=== PATIENT | male | born 1980 | race Caucasian/White ===

== ENCOUNTER 2019-12-29 05:33 | Emergency (ER) | payer OTHER, SELFPAY ==
[2019-12-29 05:45] VITALS: BP 142/91; PULSE 87; RESP 16; TEMP 36.6; O2SAT 97; BMI 24.0
--- NOTE | 2019-12-29 05:51 | ED_ITS ---
HPI - Abdominal Pain <Leigh Ann Rendon MD - Last Filed: 12/30/19 03:38> General Chief Complaint: Abdominal Pain Stated Complaint: stomach pain x 5 days, vomiting Time Seen by Provider: 12/29/19 05:51 History of Present Illness HPI narrative: 39-year-old gentleman with no specific past medical history presents with 5 days of increasing abdominal pain. Was initially seen on December 27 at [facility] diagnosed with diverticulitis and started on Augmentin. Increasing pain and was seen the following day metronidazole and tramadol was added. Pain has continued he is now vomiting he has not had a bowel movement in 2 days is no longer passing flatus and pain is getting significantly worse. Does not describe significant fevers. Related Data Previous Rx's Medication Instructions Recorded ondansetron 4 mg PO Q4H PRN #14 tab 12/29/19 Allergies Allergy/AdvReac Type Severity Reaction Status Date / Time No Known Drug Allergies Allergy Verified 12/29/19 06:28 Review of Systems <Leigh Ann Rendon MD - Last Filed: 12/30/19 03:38> Review of Systems Narrative: Pertinent positive and negative findings as per HPI Remainder of review of systems is otherwise unremarkable for ENT: No sore throat, neck pain, ear pain CV: Chest pain, palpitations, dyspnea on exertion Respiratory: Cough, wheeze, dyspnea : Dysuria, hematuria, flank pain MS: Muscle weakness, numbness, joint swelling or warmth Skin: Rashes, nonhealing lesions Neuro: Syncope, dizziness, tingling Exam <Leigh Ann Rendon MD - Last Filed: 12/30/19 03:38> Narrative Exam Narrative: General: Healthy appearing, significant distress due to abdomin al pain Able to give a complete and coherent history. HEENT: Moist mucous membranes, normal sclera with reactive pupils, diaphoretic secondary to pain Neck: supple Respiratory: Lungs are clear to auscultation, no wheezing no rales no rhonchi. Full and symmetrical air movement Cardiac: Mild tachycardia but regular rate and rhythm no murmurs no bruits Abdomen: Firm, significantly tender worse in the left quadrants with guarding and significantly hypoactive bowel tones, no flank pain Skin: Warm and dry, no rashes Neurologic: Grossly neurologically intact with no obvious asymmetries or abnormalities Extremities: No trauma, well perfused Psych: Cooperative, appropriate insight and affect Initial Vital Signs Initial Vital Signs: Vital Signs Temperature 97.8 F 12/29/19 05:45 Pulse Rate 87 12/29/19 05:45 Respiratory Rate 16 12/29/19 05:45 Blood Pressure 142/91 H 12/29/19 05:45 Pulse Oximetry 97 12/29/19 05:45 <Antelmo Marrufo MD - Last Filed: 12/29/19 09:48> Initial Vital Signs Initial Vital Signs: Vital Signs Temperature 97.8 F 12/29/19 05:45 Pulse Rate 87 12/29/19 05:45 Respiratory Rate 16 12/29/19 05:45 Blood Pressure 142/91 H 12/29/19 05:45 Pulse Oximetry 97 12/29/19 05:45 Course <Leigh Ann Rendon MD - Last Filed: 12/30/19 03:38> Orders Ordered: Discontinued Medications Hydromorphone HCl (Dilaudid) 0.5 mg IV Q15MIN PRN PRN Reason: Pain, Severe (7-10) Last Admin: 12/29/19 06:08 Dose: 0.5 mg Documented by: [facility] Sodium Chloride (Normal Saline 0.9%) 1,000 mls @ 1,000 mls/hr IV BOLUS ONE Stop: 12/29/19 06:57 Last Infusion: 12/29/19 07:07 Dose: 100 mls/hr Documented by: Infusion: 12/29/19 06:16 Dose: 0 mls/hr Documented by: Admin: 12/29/19 06:09 Dose: 1,000 mls/hr Documented by: [facility] Piperacillin/Tazobactam/Dextrose (Zosyn) 3.375 gm in 50 mls @ 100 mls/hr IV NOW ONE Stop: 12/29/19 06:28 Last Infusion: 12/29/19 07:07 Dose: 0 mls/hr Documented by: Infusion: 12/29/19 06:35 Dose: 100 mls/hr Documented by: Infusion: 12/29/19 06:17 Dose: 0 mls/hr Documented by: Admin: 12/29/19 06:10 Dose: 100 mls/hr Documented by: [facility] Ketorolac Tromethamine (Toradol) 30 mg IV NOW ONE Stop: 12/29/19 07:43 Last Admin: 12/29/19 08:04 Dose: 30 mg Documented by: [facility] Magnesium Hydroxide (Milk Of Magnesia) 30 ml PO NOW ONE Stop: 12/29/19 09:00 Last Admin: 12/29/19 09:22 Dose: 30 ml Documented by: [facility] Ondansetron HCl (Zofran) 4 mg IV NOW ONE Stop: 12/29/19 05:59 Last Admin: 12/29/19 06:09 Dose: 4 mg Documented by: [facility] Vital Signs Vital signs: Vital Signs - 8 hr 12/29/19 05:45 12/29/19 06:34 12/29/19 06:55 Temperature 97.8 F Pulse Rate 87 84 77 Respiratory Rate 16 Blood Pressure 142/91 H 137/78 Pulse Oximetry 97 100 98 12/29/19 07:00 12/29/19 07:30 12/29/19 09:27 Temperature Pulse Rate 76 79 91 H Respiratory Rate 16 Blood Pressure 127/81 131/77 121/69 Pulse Oximetry 97 95 95 <Antelmo Marrufo MD - Last Filed: 12/29/19 09:48> Course Course Narrative: I assumed care of this patient at change of shift from Dr. Marley. The patient presented with severe abdominal pain, with nausea vomiting. He has been constipated for 4 days. He was initially seen several days ago at [facility] for abdominal pain. He was seen at [facility] 3 days ago and discharged on Augmentin after CT suggested diverticulitis. Records were obtained, I read the radiology report. Although suggestive, the diagnosis of diverticulitis was questionable. He was treated with Augmentin. He return to the ER with complaints of wound pain. Flagyl was added to the treatment. He was given Tramadol for pain. He describes periods of time where he is feeling better, pain and nausea seems to exacerbate in the evening. Pain exacerbated again prior to arrival here. On initial assessment he was having severe pain with guarding. CT was repeated, diverticulosis is noted, there is no evidence of diverticulitis. There is no evidence of abscess formation or free air. He was given a dose of IV Zosyn after arrival here. On my repeat exam, he is alert oriented and in no apparent distress. He has left lower quadrant abdominal pain, no distension, and normal bowel sounds. There are no peritoneal signs. When genital exam he has no testicular tenderness, but mild mild left epididymal tenderness. Rectal exam reveals a normal prostate, normal size and nontender. I advised him to continue his current treatment for diverticulitis, Augmentin and Flagyl. I would advise him to address the nausea with Zofran, and take milk of magnesia for constipation. He is advised to maintain good hydration.Tracy Ornelas MD Orders Ordered: Discontinued Medications Hydromorphone HCl (Dilaudid) 0.5 mg IV Q15MIN PRN PRN Reason: Pain, Severe (7-10) Last Admin: 12/29/19 06:08 Dose: 0.5 mg Documented by: [facility] Sodium Chloride (Normal Saline 0.9%) 1,000 mls @ 1,000 mls/hr IV BOLUS ONE Stop: 12/29/19 06:57 Last Infusion: 12/29/19 07:07 Dose: 100 mls/hr Documented by: Infusion: 12/29/19 06:16 Dose: 0 mls/hr Documented by: Admin: 12/29/19 06:09 Dose: 1,000 mls/hr Documented by: [facility] Piperacillin/Tazobactam/Dextrose (Zosyn) 3.375 gm in 50 mls @ 100 mls/hr IV NOW ONE Stop: 12/29/19 06:28 Last Infusion: 12/29/19 07:07 Dose: 0 mls/hr Documented by: Infusion: 12/29/19 06:35 Dose: 100 mls/hr Documented by: Infusion: 12/29/19 06:17 Dose: 0 mls/hr Documented by: Admin: 12/29/19 06:10 Dose: 100 mls/hr Documented by: [facility] Ketorolac Tromethamine (Toradol) 30 mg IV NOW ONE Stop: 12/29/19 07:43 Last Admin: 12/29/19 08:04 Dose: 30 mg Documented by: [facility] Magnesium Hydroxide (Milk Of Magnesia) 30 ml PO NOW ONE Stop: 12/29/19 09:00 Last Admin: 12/29/19 09:22 Dose: 30 ml Documented by: [facility] Ondansetron HCl (Zofran) 4 mg IV NOW ONE Stop: 12/29/19 05:59 Last Admin: 12/29/19 06:09 Dose: 4 mg Documented by: [facility] Vital Signs Vital signs: Vital Signs - 8 hr 12/29/19 05:45 12/29/19 06:34 12/29/19 06:55 Temperature 97.8 F Pulse Rate 87 84 77 Respiratory Rate 16 Blood Pressure 142/91 H 137/78 Pulse Oximetry 97 100 98 12/29/19 07:00 12/29/19 07:30 12/29/19 09:27 Temperature Pulse Rate 76 79 91 H Respiratory Rate 16 Blood Pressure 127/81 131/77 121/69 Pulse Oximetry 97 95 95 MDM - Abdominal Pain <Leigh Ann Rendon MD - Last Filed: 12/30/19 03:38> Medical Records Attestation: I reviewed the patient's medical records. Lab Data Result diagrams: 12/29/19 05:48 12/29/19 05:48 Labs: Lab Results 12/29/19 12/29/19 12/29/19 Range/Units 05:48 05:48 05:48 WBC 8.8 (4.5-11.0) X10^3/uL RBC 5.59 (4.5-5.9) X10^6/uL Hgb 15.8 (13.5-17.5) g/dL Hct 44.7 (41-53) % MCV 80.0 (80-100) fL MCH 28.2 (26-34) PG MCHC 35.3 (30-36) % RDW 13.8 (11.6-14.8) % Plt Count 179 (150-400) X10^3/uL Neut % (Auto) 77.6 H (50-75) % Lymph % (Auto) 15.1 L (25-40) % [place] % (Auto) 5.9 (3-14) % Eos % (Auto) 1.1 L (2-4) % Baso % (Auto) 0.3 (0-2) % Neut # (Auto) 6900 (0647-4758) /uL Lymph # (Auto) 1300 (0761-8054) /uL [place] # (Auto) 500 (0-900) /uL Eos # (Auto) 100 (0-450) /uL Baso # (Auto) 0 (0-100) /uL Sodium 128 L (137-145) mmol/L Potassium 3.3 L (3.4-5.1) mmol/L Chloride 92 L (98-107) mmol/L Carbon Dioxide 21 L (22-32) mmol/L BUN 5 L (9-20) mg/dL Creatinine 0.80 (0.66-1.25) mg/dL Estimated GFR > 60.0 (>60) mL/min BUN/Creatinine Ratio 6.3 (6-22) Glucose 108 H (70-100) mg/dL Lactate 1.6 (0.7-2.1) mmol/L Calcium 9.5 (8.4-10.2) mg/dL Magnesium (1.6-2.3) mg/dL Total Bilirubin 1.2 (0.2-1.3) mg/dL AST 32 (17-59) IU/L ALT 24 (<50) IU/L Alkaline Phosphatase 108 (38-126) U/L Total Protein 7.9 (6.3-8.2) g/dL Albumin 5.0 (3.5-5.0) g/dL Globulin 2.9 (1.7-4.1) g/dL Albumin/Globulin Ratio 1.7 (1.0-2.8) Lipase 45 (23-300) U/L Urine Color Urine Appearance Urine pH (4.5-8.0) Ur Specific [place] (1.000-1.035) Urine Protein (Negative) Urine Glucose (UA) (Negative) g/dL Urine Ketones (NEGATIVE) Urine Occult Blood (Negative) Urine Nitrate (Negative) Urine Bilirubin (NEGATIVE) Urine Urobilinogen (0.2) E.U./dL Ur Leukocyte Esterase (NEGATIVE) Urine RBC (0-5/HPF) Urine WBC (0-5/HPF) Urine Bacteria (None) Ur Culture Indicated? Micro UA Comment 12/29/19 12/29/19 Range/Units 05:48 06:58 WBC (4.5-11.0) X10^3/uL RBC (4.5-5.9) X10^6/uL Hgb (13.5-17.5) g/dL Hct (41-53) % MCV (80-100) fL MCH (26-34) PG MCHC (30-36) % RDW (11.6-14.8) % Plt Count (150-400) X10^3/uL Neut % (Auto) (50-75) % Lymph % (Auto) (25-40) % [place] % (Auto) (3-14) % Eos % (Auto) (2-4) % Baso % (Auto) (0-2) % Neut # (Auto) (1061-4176) /uL Lymph # (Auto) (5423-3736) /uL [place] # (Auto) (0-900) /uL Eos # (Auto) (0-450) /uL Baso # (Auto) (0-100) /uL Sodium (137-145) mmol/L Potassium (3.4-5.1) mmol/L Chloride (98-107) mmol/L Carbon Dioxide (22-32) mmol/L BUN (9-20) mg/dL Creatinine (0.66-1.25) mg/dL Estimated GFR (>60) mL/min BUN/Creatinine Ratio (6-22) Glucose (70-100) mg/dL Lactate (0.7-2.1) mmol/L Calcium (8.4-10.2) mg/dL Magnesium 1.9 (1.6-2.3) mg/dL Total Bilirubin (0.2-1.3) mg/dL AST (17-59) IU/L ALT (<50) IU/L Alkaline Phosphatase (38-126) U/L Total Protein (6.3-8.2) g/dL Albumin (3.5-5.0) g/dL Globulin (1.7-4.1) g/dL Albumin/Globulin Ratio (1.0-2.8) Lipase (23-300) U/L Urine Color Yellow Urine Appearance Clear Urine pH 7.0 (4.5-8.0) Ur Specific [place] <=1.005 (1.000-1.035) Urine Protein Negative (Negative) Urine Glucose (UA) Negative (Negative) g/dL Urine Ketones 2+ H (NEGATIVE) Urine Occult Blood Negative (Negative) Urine Nitrate Negative (Negative) Urine Bilirubin Negative (NEGATIVE) Urine Urobilinogen 0.2 (0.2) E.U./dL Ur Leukocyte Esterase Negative (NEGATIVE) Urine RBC None seen (0-5/HPF) Urine WBC None seen (0-5/HPF) Urine Bacteria None seen (None) Ur Culture Indicated? Cult not indicated Micro UA Comment Microscopic normal <Antelmo Marrufo MD - Last Filed: 12/29/19 09:48> Lab Data Labs: Lab Results 12/29/19 12/29/19 12/29/19 Range/Units 05:48 05:48 05:48 WBC 8.8 (4.5-11.0) X10^3/uL RBC 5.59 (4.5-5.9) X10^6/uL Hgb 15.8 (13.5-17.5) g/dL Hct 44.7 (41-53) % MCV 80.0 (80-100) fL MCH 28.2 (26-34) PG MCHC 35.3 (30-36) % RDW 13.8 (11.6-14.8) % Plt Count 179 (150-400) X10^3/uL Neut % (Auto) 77.6 H (50-75) % Lymph % (Auto) 15.1 L (25-40) % [place] % (Auto) 5.9 (3-14) % Eos % (Auto) 1.1 L (2-4) % Baso % (Auto) 0.3 (0-2) % Neut # (Auto) 6900 (4378-7608) /uL Lymph # (Auto) 1300 (9850-4744) /uL [place] # (Auto) 500 (0-900) /uL Eos # (Auto) 100 (0-450) /uL Baso # (Auto) 0 (0-100) /uL Sodium 128 L (137-145) mmol/L Potassium 3.3 L (3.4-5.1) mmol/L Chloride 92 L (98-107) mmol/L Carbon Dioxide 21 L (22-32) mmol/L BUN 5 L (9-20) mg/dL Creatinine 0.80 (0.66-1.25) mg/dL Estimated GFR > 60.0 (>60) mL/min BUN/Creatinine Ratio 6.3 (6-22) Glucose 108 H (70-100) mg/dL Lactate 1.6 (0.7-2.1) mmol/L Calcium 9.5 (8.4-10.2) mg/dL Magnesium (1.6-2.3) mg/dL Total Bilirubin 1.2 (0.2-1.3) mg/dL AST 32 (17-59) IU/L ALT 24 (<50) IU/L Alkaline Phosphatase 108 (38-126) U/L Total Protein 7.9 (6.3-8.2) g/dL Albumin 5.0 (3.5-5.0) g/dL Globulin 2.9 (1.7-4.1) g/dL Albumin/Globulin Ratio 1.7 (1.0-2.8) Lipase 45 (23-300) U/L Urine Color Urine Appearance Urine pH (4.5-8.0) Ur Specific [place] (1.000-1.035) Urine Protein (Negative) Urine Glucose (UA) (Negative) g/dL Urine Ketones (NEGATIVE) Urine Occult Blood (Negative) Urine Nitrate (Negative) Urine Bilirubin (NEGATIVE) Urine Urobilinogen (0.2) E.U./dL Ur Leukocyte Esterase (NEGATIVE) Urine RBC (0-5/HPF) Urine WBC (0-5/HPF) Urine Bacteria (None) Ur Culture Indicated? Micro UA Comment 12/29/19 12/29/19 Range/Units 05:48 06:58 WBC (4.5-11.0) X10^3/uL RBC (4.5-5.9) X10^6/uL Hgb (13.5-17.5) g/dL Hct (41-53) % MCV (80-100) fL MCH (26-34) PG MCHC (30-36) % RDW (11.6-14.8) % Plt Count (150-400) X10^3/uL Neut % (Auto) (50-75) % Lymph % (Auto) (25-40) % [place] % (Auto) (3-14) % Eos % (Auto) (2-4) % Baso % (Auto) (0-2) % Neut # (Auto) (1730-6077) /uL Lymph # (Auto) (3689-3590) /uL [place] # (Auto) (0-900) /uL Eos # (Auto) (0-450) /uL Baso # (Auto) (0-100) /uL Sodium (137-145) mmol/L Potassium (3.4-5.1) mmol/L Chloride (98-107) mmol/L Carbon Dioxide (22-32) mmol/L BUN (9-20) mg/dL Creatinine (0.66-1.25) mg/dL Estimated GFR (>60) mL/min BUN/Creatinine Ratio (6-22) Glucose (70-100) mg/dL Lactate (0.7-2.1) mmol/L Calcium (8.4-10.2) mg/dL Magnesium 1.9 (1.6-2.3) mg/dL Total Bilirubin (0.2-1.3) mg/dL AST (17-59) IU/L ALT (<50) IU/L Alkaline Phosphatase (38-126) U/L Total Protein (6.3-8.2) g/dL Albumin (3.5-5.0) g/dL Globulin (1.7-4.1) g/dL Albumin/Globulin Ratio (1.0-2.8) Lipase (23-300) U/L Urine Color Yellow Urine Appearance Clear Urine pH 7.0 (4.5-8.0) Ur Specific [place] <=1.005 (1.000-1.035) Urine Protein Negative (Negative) Urine Glucose (UA) Negative (Negative) g/dL Urine Ketones 2+ H (NEGATIVE) Urine Occult Blood Negative (Negative) Urine Nitrate Negative (Negative) Urine Bilirubin Negative (NEGATIVE) Urine Urobilinogen 0.2 (0.2) E.U./dL Ur Leukocyte Esterase Negative (NEGATIVE) Urine RBC None seen (0-5/HPF) Urine WBC None seen (0-5/HPF) Urine Bacteria None seen (None) Ur Culture Indicated? Cult not indicated Micro UA Comment Microscopic normal Imaging Data CT scan - abdomen/pelvis: Radiologist's Impression: 180 Antelmo Marrufo MD Find Patient Imaging - Chuck Aguirre III 39 M 1980 ACTIVITY DATE EXAM STATUS AUTHOR 12/29/19 06:[address] [address] [address] Scan Report Signed Patient: Chuck Aguirre IIIMR#: [id number] : 1980Acct:[id number] Age/Sex: 39 / MDate of Service: 12/29/19 Loc: ED Accession Number: [id number] Procedure: CT abdomen pelvis w con Ordering Provider: Leigh Ann Rendon MD PROCEDURE: CT ABDOMEN PELVIS W CON INDICATIONS: abdominal pain, LLQ, recent diverticulits diagnosis,?abscess TECHNIQUE: After the administration of intravenous contrast, 5 mm thick sections acquired from the diaphragm to the symphysis. 5 mm coronal and sagittal reformats were acquired. For radiation dose reduction, the following was used: automated exposure control, adjustment of mA and/or kV according to patient size. COMPARISON: CT, CT ABD PELVIS W CON, 05/27/2015, 12:13. FINDINGS: Image quality: Excellent. ABDOMEN: Lung bases: Lung bases are clear. Heart size is normal. Solid organs: Liver is normal in size and enhancement. Gallbladder is within normal limits. Biliary system is non dilated. Pancreas enhances normally. Spleen is normal in size and enhancement. No adrenal nodules. Kidneys demonstrate normal size and enhancement, without hydronephrosis. 7 millimeter hypoattenuating lesion noted lower pole of the left kidney which may represent a cyst, however lesion is too small to definitively characterize. Peritoneum and bowel: Bowel loops demonstrate normal wall thickness and caliber. Few scattered diverticuli noted in the colon without evidence of diverticulitis. No free fluid or air. Appendix is normal. Nodes and vessels: No retroperitoneal or mesenteric adenopathy by size criteria. Aorta and inferior vena cava are normal in size. Miscellaneous: No ventral hernias. PELVIS: Genitourinary: Bladder wall thickness is normal. Miscellaneous: No inguinal hernias or adenopathy. Bones: No suspicious bony lesions. No vertebral body compression fractures. IMPRESSION: 1. Colonic diverticulosis without evidence of diverticulitis. 2. No free fluid or free air. 3. No dilated loops of bowel. Dictated by: Juanita Babb MD, PhD on 12/29/2019 at 7:24 Approved by: Juanita Babb MD, PhD on 12/29/2019 at 7:28 Discharge Plan Departure Patient Disposition: Home Clinical Impression: Diverticulitis Discharge Date/Time: 12/29/19 09:52 Instructions: DI for Diverticulitis Activity Restrictions/Additional Instructions: Zofran every 4 hours as needed for nausea. Be sure you are drinking plenty of fluids and remaining well hydrated. You should help to urinate at least every 3-4 hours. Take Tylenol 2 tabs every 4 hours, or Advil 3 tabs every 6 hours as needed for pain. Narcotic pain medications cause constipation. Milk of magnesia 2 tbsp every 4-6 hours as needed for constipation. Continue current antibiotics, Augmentin and metronidazole as prescribed. Plan to follow-up with her doctor in 2-3 weeks for re-evaluation. I would suggest to talk to about a consult to Surgery or Gastroenterology for colonoscopy. Follow-up of the local ER if you have worsening symptoms, or fever. Prescriptions: New ondansetron 4 mg tablet,disintegrating 4 mg PO Q4H PRN (Reason: nausea and vomiting) Qty: 14 RF: 0
--- NOTE | 2019-12-29 06:00 | DI.CT.S_ITS ---
PROCEDURE: CT ABDOMEN PELVIS W CON INDICATIONS: abdominal pain, LLQ, recent diverticulits diagnosis,?abscess TECHNIQUE: After the administration of intravenous contrast, 5 mm thick sections acquired from the diaphragm to the symphysis. 5 mm coronal and sagittal reformats were acquired. For radiation dose reduction, the following was used: automated exposure control, adjustment of mA and/or kV according to patient size. COMPARISON: CT, CT ABD PELVIS W CON, 05/27/2015, 12:13. FINDINGS: Image quality: Excellent. ABDOMEN: Lung bases: Lung bases are clear. Heart size is normal. Solid organs: Liver is normal in size and enhancement. Gallbladder is within normal limits. Biliary system is non dilated. Pancreas enhances normally. Spleen is normal in size and enhancement. No adrenal nodules. Kidneys demonstrate normal size and enhancement, without hydronephrosis. 7 millimeter hypoattenuating lesion noted lower pole of the left kidney which may represent a cyst, however lesion is too small to definitively characterize. Peritoneum and bowel: Bowel loops demonstrate normal wall thickness and caliber. Few scattered diverticuli noted in the colon without evidence of diverticulitis. No free fluid or air. Appendix is normal. Nodes and vessels: No retroperitoneal or mesenteric adenopathy by size criteria. Aorta and inferior vena cava are normal in size. Miscellaneous: No ventral hernias. PELVIS: Genitourinary: Bladder wall thickness is normal. Miscellaneous: No inguinal hernias or adenopathy. Bones: No suspicious bony lesions. No vertebral body compression fractures. IMPRESSION: 1. Colonic diverticulosis without evidence of diverticulitis. 2. No free fluid or free air. 3. No dilated loops of bowel. Dictated by: Juanita Babb MD, PhD on 12/29/2019 at 7:24 Approved by: Juanita Babb MD, PhD on 12/29/2019 at 7:28
[2019-12-29] MEDS: HYDROMORPHONE 1 MG INJ 0.5 MG IV (06:08)
[2019-12-29] MEDS: SODIUM CHLORIDE 0.9% 1,000 ML 1000 ML IV (06:09)
[2019-12-29] MEDS: ONDANSETRON 4 MG/2 ML INJ IV (06:09)
[2019-12-29] MEDS: PIPERACILLIN-TAZO 3.375 GM/50 ML FROZ.PIGGY IV (06:10)
[2019-12-29 06:14] LABS: Add Manual Diff / Slide Review NO; Basophils Absolute Auto 0 /uL (0-100); Basophils Percent Auto 0.3 % (0-2); Eosinophils Absolute Auto 100 /uL (0-450); Eosinophils Percent Auto 1.1 % (2-4); Hematocrit 44.7 % (41-53); Hemoglobin 15.8 g/dL (13.5-17.5); Lymphocytes Absolute Auto 1300 /uL (1100-4500); Lymphocytes Percent Auto 15.1 % (25-40); Mean Corpuscular HGB Conc 35.3 % (30-36); Mean Corpuscular Hemoglobin 28.2 PG (26-34); Monocytes Absolute Auto 500 /uL (0-900); Monocytes Percent Auto 5.9 % (3-14); Neutrophils Absolute Auto 6900 /uL (1500-7000); Neutrophils Percent Auto 77.6 % (50-75); Platelet Count 179 X10^3/uL (150-400); Red Blood Cell Count 5.59 X10^6/uL (4.5-5.9); Red Cell Distribution Width 13.8 % (11.6-14.8); White Blood Cell Count 8.8 X10^3/uL (4.5-11.0)
[2019-12-29 06:17] LABS: Lactate (Lactic Acid) 1.6 mmol/L (0.7-2.1)
[2019-12-29 06:18] LABS: Magnesium 1.9 mg/dL (1.6-2.3)
[2019-12-29 06:19] LABS: Alanine Aminotransferase 24 IU/L (<50); Albumin Globulin Ratio 1.7 (1.0-2.8); Alkaline Phosphatase 108 U/L (38-126); Aspartate Aminotransferase 32 IU/L (17-59); BUN Creatinine Ratio 6.3 (6-22); Bilirubin Total 1.2 mg/dL (0.2-1.3); Blood Urea Nitrogen 5 mg/dL (9-20); Calcium 9.5 mg/dL (8.4-10.2); Carbon Dioxide 21 mmol/L (22-32); Chloride 92 mmol/L (98-107); Estimated Glomerular Filt Rate > 60.0 mL/min (>60); Globulin 2.9 g/dL (1.7-4.1); Glucose 108 mg/dL (70-100); HEMOLYSIS 16 (0-50); Lipase 45 U/L (23-300); Potassium 3.3 mmol/L (3.4-5.1); Sodium 128 mmol/L (137-145); Total Protein 7.9 g/dL (6.3-8.2)
[2019-12-29 06:34] VITALS: PULSE 84; O2SAT 100
[2019-12-29 06:55] VITALS: BP 137/78; PULSE 77; O2SAT 98
[2019-12-29 07:00] VITALS: BP 127/81; PULSE 76; O2SAT 97
[2019-12-29 07:01] LABS: Bacteria Urine None Seen; RBC Urine None Seen (0-5/HPF); WBC Urine None Seen (0-5/HPF)
[2019-12-29 07:02] LABS: Appearance Urine UA CLEAR; Bilirubin Urine UA NEGATIVE (NEGATIVE); Color Urine UA YELLOW; Glucose Urine UA NEGATIVE (Negative); Ketones Urine UA 2+ (NEGATIVE); Leukocyte Esterase Urine UA NEGATIVE (NEGATIVE); Nitrite Urine UA NEGATIVE (Negative); Occult Blood Urine UA NEGATIVE (Negative); Protein Urine UA NEGATIVE (Negative); Specific Gravity Urine UA <=1.005 (1.000-1.035); Urobilinogen Urine UA 0.2 E.U./dL (0.2)
[2019-12-29 07:11] LABS: Culture Indicated Urine Cult Not Indicated; Urine Comments Microscopic Normal
[2019-12-29 07:30] VITALS: BP 131/77; PULSE 79; O2SAT 95
[2019-12-29] MEDS: KETOROLAC 60 MG/2 ML VIAL 30 MG IV (08:04)
[2019-12-29] MEDS: MAGNESIUM HYDROXIDE 30 ML UDC PO (09:22)
[2019-12-29 09:27] VITALS: BP 121/69; PULSE 91; RESP 16; O2SAT 95
== END 2019-12-29 09:52 | disposition home or self-care (01) ==
PROVIDERS: Emergency Provider Emergency Medicine
DX: K57.92 Diverticulitis of intestine, part unspecified, without perforation or abscess without bleeding (principal); R11.2 Nausea with vomiting, unspecified; R00.0 Tachycardia, unspecified; K59.00 Constipation, unspecified
CPT/HCPCS: 36415; 74177; 80053; 81001; 83605; 83690; 83735; 85025; 87040; 96365; 96375; 99284; 99285; J1170; J1885; J2405; J2543; Q9967

== ENCOUNTER → 2020-05-11 15:06 | Outpatient (CLI) | payer OTHER, SELFPAY ==
--- NOTE | 2020-05-11 15:11 | DI.CT.S_ITS ---
PROCEDURE: CT ABDOMEN PELVIS W CON INDICATIONS: diffuse abdominal pain w/ guarding, h/o diverticulosis TECHNIQUE: After the administration of intravenous contrast, 5 mm thick sections acquired from the diaphragm to the symphysis. 5 mm coronal and sagittal reformats were acquired. For radiation dose reduction, the following was used: automated exposure control, adjustment of mA and/or kV according to patient size. COMPARISON: [facility], CT, CT ABDOMEN PELVIS W CON, 12/29/2019, 6:16. FINDINGS: Image quality: Excellent. ABDOMEN: Lung bases: Lung bases are clear. Heart size is normal. Solid organs: Liver is normal in size and enhancement. Gallbladder appears normal . Biliary system is non dilated. Pancreas enhances normally. Spleen is normal in size and enhancement. No adrenal nodules. Kidneys demonstrate normal size and enhancement, without hydronephrosis. Peritoneum and bowel: Bowel loops demonstrate normal wall thickness and caliber. No free fluid or air. Nodes and vessels: No retroperitoneal or mesenteric adenopathy by size criteria. Aorta and inferior vena cava are normal in size. Miscellaneous: No ventral hernias. PELVIS: Genitourinary: Bladder wall thickness is normal. Miscellaneous: No inguinal hernias or adenopathy. Bones: No suspicious bony lesions. No vertebral body compression fractures. IMPRESSION: Normal for age, source of current generalized abdominal pain symptoms is not seen. No diverticulitis or appendicitis is seen. Dictated by: Valerio Silverio M.D. on 05/11/2020 at 16:33 Approved by: Valerio Silverio M.D. on 05/11/2020 at 16:35
[2020-05-11 16:31] LABS: Add Manual Diff / Slide Review NO; Basophils Absolute Auto 0 /uL (0-100); Basophils Percent Auto 0.4 % (0-2); Eosinophils Absolute Auto 100 /uL (0-450); Eosinophils Percent Auto 0.8 % (2-4); Hematocrit 42.7 % (41-53); Hemoglobin 14.7 g/dL (13.5-17.5); Lymphocytes Absolute Auto 1800 /uL (1100-4500); Lymphocytes Percent Auto 26.7 % (25-40); Mean Corpuscular HGB Conc 34.4 % (30-36); Mean Corpuscular Hemoglobin 28.3 PG (26-34); Mean Corpuscular Volume 82.3 fL (80-100); Monocytes Absolute Auto 400 /uL (0-900); Monocytes Percent Auto 5.2 % (3-14); Neutrophils Absolute Auto 4600 /uL (1500-7000); Neutrophils Percent Auto 66.9 % (50-75); Platelet Count 173 X10^3/uL (150-400); Red Blood Cell Count 5.19 X10^6/uL (4.5-5.9); Red Cell Distribution Width 13.2 % (11.6-14.8); White Blood Cell Count 6.9 X10^3/uL (4.5-11.0)
[2020-05-11 16:48] LABS: Alanine Aminotransferase 33 IU/L (<50); Albumin 4.1 g/dL (3.5-5.0); Albumin Globulin Ratio 1.4 (1.0-2.8); Alkaline Phosphatase 86 U/L (38-126); Amylase 79 U/L (30-110); Aspartate Aminotransferase 29 IU/L (17-59); BUN Creatinine Ratio 11.8 (6-22); Bilirubin Total 0.7 mg/dL (0.2-1.3); Blood Urea Nitrogen 11 mg/dL (9-20); Calcium 8.7 mg/dL (8.4-10.2); Carbon Dioxide 30 mmol/L (22-32); Chloride 95 mmol/L (98-107); Estimated Glomerular Filt Rate > 60.0 mL/min (>60); Globulin 2.9 g/dL (1.7-4.1); Glucose 91 mg/dL (70-100); HEMOLYSIS < 15 (0-50); Lipase 41 U/L (23-300); Potassium 3.9 mmol/L (3.4-5.1); Sodium 131 mmol/L (137-145)
== END ==
PROVIDERS: PCP Nurse Practitioner; Referring Provider Physician Assistant; Visit Provider Physician Assistant
DX: R10.84 Generalized abdominal pain (principal)
CPT/HCPCS: 36415; 74177; 80053; 82150; 83690; 85025